=== PATIENT | female | born 1965 | race Caucasian/White ===

== ENCOUNTER → 2023-12-06 08:07 | Outpatient (REF) | payer OTHER, SELFPAY | LOC: HWWDC 08:07 | PROVIDERS: ATTENDING PHYSICIAN Obstetrics & Gynecology; FAMILY PHYSICIAN Nurse Practitioner Adult Health | DX: Z12.31 Encounter for screening mammogram for malignant neoplasm of breast (principal) | CPT/HCPCS: 77063; 77067 ==

== ENCOUNTER → 2025-01-01 17:56 | Outpatient (REF) | payer OTHER, SELFPAY | LOC: WDC 17:56 | PROVIDERS: ATTENDING PHYSICIAN Nurse Practitioner Adult Health | DX: Z12.31 Encounter for screening mammogram for malignant neoplasm of breast (principal) | CPT/HCPCS: 77063; 77067 ==